=== PATIENT | female | born 2000 | race Caucasian/White ===

== ENCOUNTER 2021-05-14 10:36 | Emergency (ER) | payer SELFPAY ==
[2021-05-14 17:33] LABS: SARS-CoV-2 PCR by NAA Not Detected (NotDetected)
== END 2021-05-14 11:30 | disposition home or self-care (01) ==
LOC: CSHERS 10:36
DX: J06.9 Acute upper respiratory infection, unspecified (principal); Z20.828 Contact with and (suspected) exposure to other viral communicable diseases
CPT/HCPCS: 99283; U0003; U0005

== ENCOUNTER 2021-06-24 10:58 | Emergency (ER) | payer SELFPAY ==
[2021-06-24 12:18] LABS: Bilirubin Neg (Negative); Blood, Urine 250 (Negative); Clarity Cloudy (Clear); Glucose, Urine (Dipstick) Normal (Negative); Ketone, Urine Negative (Negative); Leukocyte 500 (Negative); Nitrite Negative (Negative); Protein, Urine (Dipstick) 30 mg/dl (Neg-Trace); Specific Gravity, Urine 1.015 (1.002-1.036); Urobilinogen Normal mg/dL (Less than 2)
[2021-06-24 12:21] LABS: Pregnancy Test - Urine (BHCG) Negative (Negative); Pregu Control Background? CLEAR/WHITE (CLR/WHITE); Pregu Control Bar Appear? YES (CONTROL BAR); Specific Gravity 1.015 (1.002-1.036)
[2021-06-24 12:33] LABS: RBC/HPF 21-50 HPF (0-3)
[2021-06-24 12:34] LABS: Transitional Epithelial 0-3 HPF (None Seen)
[2021-06-24 12:35] LABS: Bacteria/HPF 2+ HPF (None Seen)
== END 2021-06-24 15:02 | disposition home or self-care (01) ==
LOC: CSHERS 10:58
DX: N39.0 Urinary tract infection, site not specified (principal); R14.0 Abdominal distension (gaseous)
CPT/HCPCS: 81003; 81015; 81025; 99284

== ENCOUNTER 2021-10-24 00:16 | Emergency (ER) | payer OTHER, SELFPAY | END 2021-10-24 02:19 | disposition home or self-care (01) | LOC: CSHERS 00:16 | DX: S61.213A Laceration without foreign body of left middle finger without damage to nail, initial encounter (principal); W26.0XXA Contact with knife, initial encounter; Y92.69 Other specified industrial and construction area as the place of occurrence of the external cause | CPT/HCPCS: 12001 ==

== ENCOUNTER 2021-10-25 16:20 | Emergency (ER) | payer SELFPAY | END 2021-10-25 18:38 | disposition home or self-care (01) | LOC: CSHERS 16:20 | DX: S61.213A Laceration without foreign body of left middle finger without damage to nail, initial encounter (principal); W26.0XXA Contact with knife, initial encounter | CPT/HCPCS: 99282 ==

== ENCOUNTER 2022-06-09 06:51 | Emergency (ER) | payer BC, SELFPAY ==
[2022-06-09] MEDS ORDERED: Acetaminophen 500 MG TAB ONE (08:01)
[2022-06-09] MEDS ORDERED: Ketorolac Tromethamine 30 MG/ML VIAL ONE (08:01)
[2022-06-09] MEDS ORDERED: Ondansetron ODT 4 MG TAB ONE (08:02)
[2022-06-09 08:52] LABS: Pregnancy Test - Urine (BHCG) Negative (Negative); Pregu Control Background? CLEAR/WHITE (CLR/WHITE); Pregu Control Bar Appear? YES (CONTROL BAR); Specific Gravity 1.025 (1.002-1.036)
[2022-06-09] MEDS ORDERED: Oseltamivir 75 MG CAP PO SCH (09:15)
== END 2022-06-09 09:41 | disposition home or self-care (01) ==
LOC: CSHERS 06:51
DX: J10.1 Influenza due to other identified influenza virus with other respiratory manifestations (principal); Z20.822 Contact with and (suspected) exposure to COVID-19
CPT/HCPCS: 81025; 87804; 94760; 96372; 99284; J1885; Q0162; U0003; U0005

== ENCOUNTER 2023-03-30 16:43 | Emergency (ER) | payer BC, SELFPAY ==
[2023-03-30] MEDS ORDERED: Ondansetron ODT 4 MG TAB ONE (17:26)
[2023-03-30 18:25] LABS: SARS-CoV-2 NAA Rapid Test Not Detected (NotDetected)
== END 2023-03-30 19:00 | disposition home or self-care (01) ==
LOC: CSHERS 16:43
DX: B34.9 Viral infection, unspecified (principal); R11.10 Vomiting, unspecified; F17.290 Nicotine dependence, other tobacco product, uncomplicated; Z20.822 Contact with and (suspected) exposure to COVID-19
CPT/HCPCS: 99284; Q0162